=== PATIENT | female | born 1990 | race Caucasian/White ===

== ENCOUNTER 2020-01-06 12:05 | Emergency (ER) | payer OTHER ==
[~2020-01-06] VITALS: Ht 167.6 cm; Wt 115.7 kg
[~2020-01-06 12:05] MED LIST: ACET500; CEFU50SU PO; CRUTCH2 USE; HYDACE5 PO; IBUP800 PO; MEDR150I; PROCODE120 PO; TERB24TC TOP
[2020-01-06] MEDS ORDERED: IBUP400 PO (12:25)
[2020-01-06] MEDS ORDERED: TRAM50 PO (13:21)
[2020-01-06] MEDS ORDERED: Cleocin HCl300 MG PO (13:21)
== END 2020-01-06 13:37 | disposition home or self-care (01) ==
LOC: ER 12:05
DX: K02.9 Dental caries, unspecified (principal); F17.210 Nicotine dependence, cigarettes, uncomplicated; Z88.0 Allergy status to penicillin; Z88.1 Allergy status to other antibiotic agents
CPT/HCPCS: 99282

== ENCOUNTER → 2020-04-10 | Outpatient (CLI) | payer OTHER ==
[~2020-04-10] MED LIST changes: +Cleocin HCl300 MG PO; +IBUP400 PO; +TRAM50 PO
[2020-04-15 15:10] LABS: HPV 16 Negative (Negative); HPV 18 Negative (Negative); HPV OTHER HR TYPES Negative (Negative)
== END | disposition home or self-care (01) ==
LOC: LAB SHORT 19:26 → PLD 19:26
PROVIDERS: Family Medicine
DX: Z01.419 Encounter for gynecological examination (general) (routine) without abnormal findings (principal)
CPT/HCPCS: 87624; G0123

== ENCOUNTER → 2020-04-25 | Outpatient (CLI) | payer OTHER | END | disposition home or self-care (01) | LOC: LAB SHORT 08:20 → PLD 08:20 | DX: L72.0 Epidermal cyst (principal) | CPT/HCPCS: 88304 ==

== ENCOUNTER 2020-07-24 09:25 | Emergency (ER) | payer OTHER ==
[~2020-07-24] VITALS: Ht 170.2 cm; Wt 113.4 kg
[2020-07-24 10:04] LABS: Source, Urine Voided
[2020-07-24 10:08] LABS: Appearance, Urine Clear (Clear); Bilirubin, Urine Neg (Neg); Blood, Urine Neg (Neg); Glucose Qualitative, Urine Neg (Neg); Ketones, Urine Neg (Neg); Leukocyte Esterase, Urine 1+ (Neg); Nitrite, Urine Neg (Neg); Protein, Urine Neg (Neg); Specific Gravity, Urine 1.015 (1.003-1.022); Urobilinogen, Urine NORM (Normal)
[2020-07-24 10:13] LABS: BASOPHILS ABSOLUTE AUTO 0.03 K/mm3 (0.00-0.23); BASOPHILS PERCENT AUTO 0 % (0-2); EOSINOPHILS ABSOLUTE AUTO 0.13 K/mm3 (0.00-0.68); EOSINOPHILS PERCENT AUTO 1 % (0-6); Hematocrit 37.6 % (33.0-51.0); Hemoglobin 12.2 g/dL (11.5-16.0); IMMATURE GRAN ABSOLUTE AUTO 0.15 K/mm3 (0.00-0.10); IMMATURE GRAN PERCENT AUTO 2 % (0-1); LYMPHOCYTES ABSOLUTE AUTO 1.57 K/mm3 (0.84-5.20); LYMPHOCYTES PERCENT AUTO 17 % (21-46); MONOCYTES ABSOLUTE AUTO 0.65 K/mm3 (0.16-1.47); MONOCYTES PERCENT AUTO 7 % (4-13); Mean Corpuscular HGB 28.5 pg (26.0-34.0); Mean Corpuscular HGB Conc 32.4 g/dL (31.5-36.5); Mean Corpuscular Volume 88 fL (80-100); NEUTROPHILS ABSOLUTE AUTO 7.01 K/mm3 (1.96-9.15); NEUTROPHILS PERCENT AUTO 73 % (41-73); Platelet Count 184 K/mm3 (150-400); RDW Coefficient Variation 14.1 % (11.7-14.2); RDW Standard Deviation 45.1 fL (35.1-46.3); Red Blood Cell Count 4.28 M/mm3 (3.80-5.20); White Blood Cell Count 9.54 K/mm3 (4.00-11.30)
[2020-07-24 10:16] LABS: Color, Urine Pale Yellow (P-Yellow)
[2020-07-24 10:19] LABS: Renal Epithelial Rare /hpf (0-Rare)
[2020-07-24 10:20] LABS: Bacteria Few /hpf; Squamous Epithelial Cells Few /hpf (Few)
[2020-07-24 10:21] LABS: Red Blood Cells, Urine Not Seen /hpf (0-2)
[2020-07-24 10:22] LABS: White Blood Cells, Urine 0-2 /hpf (0-5)
[2020-07-24 10:33] LABS: Alanine Aminotransfer (ALT/SGP 18 U/L (12-78); Albumin, Blood 2.6 g/dL (3.4-5.0); Albumin/Globulin Ratio 0.6 (0.8-1.8); Alk Phos 61 U/L (50-136); Anion Gap 8 mmol/L (6-16); Aspartate Aminotrans (AST/SGOT 10 U/L (12-37); Bilirubin, Total 0.2 mg/dL (0.1-1.0); Blood Urea Nitrogen 10 mg/dL (8-24); CO2, Blood 22 mmol/L (21-32); Calcium, Blood 9.3 mg/dL (8.5-10.1); Chloride, Blood 107 mmol/L (98-108); Creatinine, Blood 0.56 mg/dL (0.40-1.00); Globulin, Blood 4.3 g/dL (2.2-4.0); Glomerular Filtration Rate >60 (60-); Glucose, Blood 78 mg/dL (70-99); Potassium, Blood 3.8 mmol/L (3.5-5.5); Sodium, Blood 137 mmol/L (136-145); Total Protein, Blood 6.9 g/dL (6.4-8.2)
== END 2020-07-24 11:35 | disposition home or self-care (01) ==
LOC: ER 09:25
PROVIDERS: Emergency Medicine
DX: R42 Dizziness and giddiness (principal); F17.200 Nicotine dependence, unspecified, uncomplicated; Z88.0 Allergy status to penicillin; Z88.1 Allergy status to other antibiotic agents
CPT/HCPCS: 36415; 80053; 81001; 83690; 85025; 87086; 93005; 93010; 99284-25; J7030

== ENCOUNTER → 2020-10-16 | Outpatient (CLI) | payer OTHER | LOC: LAB 18:41 → LAB SHORT 18:41 | DX: O09.93 Supervision of high risk pregnancy, unspecified, third trimester (principal) | CPT/HCPCS: 87081; 87150 ==

== ENCOUNTER 2020-10-28 00:27 | Inpatient (IN) | payer OTHER ==
[~2020-10-28] VITALS: Ht 170.2 cm; Wt 118.0 kg
[2020-10-28 01:21] LABS: BASOPHILS ABSOLUTE AUTO 0.04 K/mm3 (0.00-0.23); BASOPHILS PERCENT AUTO 1 % (0-2); EOSINOPHILS ABSOLUTE AUTO 0.08 K/mm3 (0.00-0.68); EOSINOPHILS PERCENT AUTO 1 % (0-6); Hematocrit 36.9 % (33.0-51.0); Hemoglobin 11.8 g/dL (11.5-16.0); IMMATURE GRAN ABSOLUTE AUTO 0.08 K/mm3 (0.00-0.10); IMMATURE GRAN PERCENT AUTO 1 % (0-1); LYMPHOCYTES ABSOLUTE AUTO 1.59 K/mm3 (0.84-5.20); LYMPHOCYTES PERCENT AUTO 19 % (21-46); MONOCYTES ABSOLUTE AUTO 0.74 K/mm3 (0.16-1.47); MONOCYTES PERCENT AUTO 9 % (4-13); Mean Corpuscular HGB 26.9 pg (26.0-34.0); Mean Corpuscular Volume 84 fL (80-100); NEUTROPHILS PERCENT AUTO 70 % (41-73); Platelet Count 140 K/mm3 (150-400); RDW Coefficient Variation 14.8 % (11.7-14.2); RDW Standard Deviation 44.8 fL (35.1-46.3); Red Blood Cell Count 4.39 M/mm3 (3.80-5.20); White Blood Cell Count 8.53 K/mm3 (4.00-11.30)
[2020-10-28 01:30] LABS: Mean Platelet Volume 13.2 fL (9.1-12.4)
[2020-10-28] MEDS ORDERED: HUMULIN N100 UNIT/3 SC (02:17)
[2020-10-28] MEDS ORDERED: LAMO25 PO (02:18)
[2020-10-28] MEDS ORDERED: ONE A DAY PREN1 EACH PO (02:19)
[2020-10-28] MEDS ORDERED: VITAMIN B-650 MG PO (02:20)
[2020-10-28] MEDS ORDERED: VENL150ER PO (02:21)
[2020-10-28 02:59] LABS: Creatinine, Urine Random 36.3 mg/dL (27.00-270.00); Protein, Urine Random 29.4 mg/dL (0.0-11.9); Protein/Creat Ratio, Ur Random 0.8
[2020-10-28 03:06] LABS: Alanine Aminotransfer (ALT/SGP 18 U/L (12-78); Albumin, Blood 2.5 g/dL (3.4-5.0); Albumin/Globulin Ratio 0.6 (0.8-1.8); Alk Phos 164 U/L (50-136); Anion Gap 8 mmol/L (6-16); Aspartate Aminotrans (AST/SGOT 11 U/L (12-37); Bilirubin, Total 0.3 mg/dL (0.1-1.0); Blood Urea Nitrogen 10 mg/dL (8-24); Bun/Creatinine Ratio 12.7 (12.0-20.0); CO2, Blood 25 mmol/L (21-32); Chloride, Blood 107 mmol/L (98-108); Creatinine, Blood 0.79 mg/dL (0.40-1.00); Glomerular Filtration Rate >60 (60-); Glucose, Blood 87 mg/dL (70-99); Potassium, Blood 4.3 mmol/L (3.5-5.5); Sodium, Blood 140 mmol/L (136-145); Total Protein, Blood 6.5 g/dL (6.4-8.2)
[2020-10-28 05:55] LABS: PCO2 Cord - Arterial 57.8 mmHg (40-50); PO2 Cord - Arterial 21.6 mmHg (16-20); pH Cord - Arterial 7.21 (7.28-7.35)
[2020-10-28 05:57] LABS: PCO2 Cord - Venous 34.2 mmHg (40-50); PO2 Cord - Venous 36.5 mmHg (28-32); pH Umbilical Cord - Venous 7.39 (7.26-7.35)
--- NOTE | 2020-10-28 10:14 | NUR ---
PATIENT DOZING INTERMITTANLY, NO C/O HEADACH, VISUAL DISTURBANCES, EPIGASTRIC PAIN.
--- NOTE | 2020-10-29 08:27 | NUR ---
DR YAP AT BEDSIDE
--- NOTE | 2020-10-29 08:54 | NUR ---
PSA STOCKING APPLIED
[2020-10-30] MEDS ORDERED: IBUP800 PO (08:35)
[2020-10-30] MEDS ORDERED: LABE200 PO (08:36)
--- NOTE | 2020-10-30 09:54 | NUR ---
DISCHARGE INSTRUCTIONS REVIEWED AND SIGNED. BANDS MATCHED. DISCHARGED TO HOME.
== END 2020-10-30 10:10 | disposition home or self-care (01) | DRG 805 ==
LOC: OBS 00:27 → BC 00:28 → OBS 00:29 → BC 00:30
PROVIDERS: Advanced Practice Midwife; ADMIT Family Medicine
PROC: 10E0XZZ Delivery of Products of Conception, External Approach (ICD-10-PCS; principal; 2020-10-28)
PROC: 0KQM0ZZ Repair Perineum Muscle, Open Approach (ICD-10-PCS; 2020-10-28)
PROC: 10907ZC Drainage of Amniotic Fluid, Therapeutic from Products of Conception, Via Natural or Artificial Opening (ICD-10-PCS; 2020-10-28)
DX: O24.424 Gestational diabetes mellitus in childbirth, insulin controlled (principal); U07.1 COVID-19; Z37.0 Single live birth; O99.12 Other diseases of the blood and blood-forming organs and certain disorders involving the immune mechanism complicating childbirth; O98.52 Other viral diseases complicating childbirth; Z3A.39 39 weeks gestation of pregnancy; O76 Abnormality in fetal heart rate and rhythm complicating labor and delivery; O99.214 Obesity complicating childbirth; E66.9 Obesity, unspecified; O70.1 Second degree perineal laceration during delivery; O99.344 Other mental disorders complicating childbirth; F41.8 Other specified anxiety disorders; O99.334 Smoking (tobacco) complicating childbirth; F17.210 Nicotine dependence, cigarettes, uncomplicated; O77.0 Labor and delivery complicated by meconium in amniotic fluid; D69.6 Thrombocytopenia, unspecified; O13.4 Gestational [pregnancy-induced] hypertension without significant proteinuria, complicating childbirth; O14.14 Severe pre-eclampsia complicating childbirth; Z79.899 Other long term (current) drug therapy; Z88.8 Allergy status to other drugs, medicaments and biological substances; Z88.0 Allergy status to penicillin; Z88.1 Allergy status to other antibiotic agents; Z88.4 Allergy status to anesthetic agent
CPT/HCPCS: 36415; 80053; 82570; 82803; 82947; 84156; 85025; 86850; 86900; 86901; 88307; A9270; J0360; J1815; J1885; J2210; J2590; J3010; J3475; J7030; J7050; J7120

== ENCOUNTER 2020-12-01 19:55 | Observation (INO) | payer OTHER ==
[~2020-12-01] VITALS: Ht 170.2 cm; Wt 117.9 kg
[~2020-12-01 19:55] MED LIST changes: +HUMULIN N100 UNIT/3 SC; +ONE A DAY PREN1 EACH PO; +VITAMIN B-650 MG PO
[2020-12-01 20:27] LABS: BASOPHILS ABSOLUTE AUTO 0.07 K/mm3 (0.00-0.23); BASOPHILS PERCENT AUTO 1 % (0-2); EOSINOPHILS ABSOLUTE AUTO 0.25 K/mm3 (0.00-0.68); EOSINOPHILS PERCENT AUTO 3 % (0-6); Hematocrit 40.8 % (33.0-51.0); Hemoglobin 13.1 g/dL (11.5-16.0); IMMATURE GRAN ABSOLUTE AUTO 0.03 K/mm3 (0.00-0.10); IMMATURE GRAN PERCENT AUTO 0 % (0-1); LYMPHOCYTES ABSOLUTE AUTO 2.33 K/mm3 (0.84-5.20); LYMPHOCYTES PERCENT AUTO 31 % (21-46); MONOCYTES ABSOLUTE AUTO 0.42 K/mm3 (0.16-1.47); MONOCYTES PERCENT AUTO 6 % (4-13); Mean Corpuscular HGB Conc 32.1 g/dL (31.5-36.5); Mean Corpuscular Volume 84 fL (80-100); Mean Platelet Volume 10.6 fL (9.1-12.4); NEUTROPHILS PERCENT AUTO 59 % (41-73); Platelet Count 267 K/mm3 (150-400); RDW Coefficient Variation 14.5 % (11.7-14.2); RDW Standard Deviation 44.3 fL (35.1-46.3); Red Blood Cell Count 4.85 M/mm3 (3.80-5.20)
[2020-12-01 20:30] LABS: Source, Urine Clean Catch
[2020-12-01 20:38] LABS: Appearance, Urine Clear (Clear); Bilirubin, Urine Neg (Neg); Blood, Urine Neg (Neg); Color, Urine Yellow (P-Yellow); Glucose Qualitative, Urine Neg (Neg); Ketones, Urine Neg (Neg); Leukocyte Esterase, Urine Neg (Neg); Nitrite, Urine Neg (Neg); Protein, Urine Neg (Neg); Urobilinogen, Urine NORM (Normal)
[2020-12-01 20:45] LABS: Alanine Aminotransfer (ALT/SGP 34 U/L (12-78); Albumin, Blood 3.7 g/dL (3.4-5.0); Albumin/Globulin Ratio 0.9 (0.8-1.8); Alk Phos 94 U/L (50-136); Anion Gap 7 mmol/L (6-16); Aspartate Aminotrans (AST/SGOT 20 U/L (12-37); Bilirubin, Total 0.2 mg/dL (0.1-1.0); Blood Urea Nitrogen 9 mg/dL (8-24); Bun/Creatinine Ratio 9.8 (12.0-20.0); CO2, Blood 26 mmol/L (21-32); Calcium, Blood 9.4 mg/dL (8.5-10.1); Chloride, Blood 107 mmol/L (98-108); Creatinine, Blood 0.92 mg/dL (0.40-1.00); Ethanol (Alcohol), Blood, Med <3 mg/dL; Globulin, Blood 4.2 g/dL (2.2-4.0); Glomerular Filtration Rate >60 (60-); Glucose, Blood 93 mg/dL (70-99); Potassium, Blood 3.8 mmol/L (3.5-5.5); Salicylate <1.7 mg/dL (2.8-20.0); Sodium, Blood 140 mmol/L (136-145); Total Protein, Blood 7.9 g/dL (6.4-8.2)
[2020-12-01 20:48] LABS: Acetaminophen, Random <2.0 ug/mL (10.0-30.0)
[2020-12-01 20:52] LABS: U Amphetamine Screen Not Detected; U Barbituate Screen Not Detected; U Benzodiazapine Screen Not Detected; U Buprenorphine Screen Not Detected; U Cannabinoids Screen DETECTED; U Cocaine Screen Not Detected; U Methadone Screen Not Detected; U Methamphetamine Screen Not Detected; U Opiates Screen Not Detected; U Oxycodone Screen Not Detected; U Phencyclidine Screen Not Detected; U Propoxyphene Screen Not Detected
[2020-12-01] MEDS ORDERED: Prinivil10 MG PO (21:21)
[2020-12-01] MEDS ORDERED: LAMICTAL XR100 MG PO (21:21)
[2020-12-01] MEDS ORDERED: LABE200 PO (21:22)
[2020-12-01] MEDS ORDERED: IBUP800 PO (21:23)
[2020-12-01] MEDS ORDERED: VENL150ER PO (21:23)
[2020-12-02 01:18] LABS: SARS-Cov-2 (COVID-19) PCR, MMC NEGATIVE (NEGATIVE)
== END 2020-12-02 15:31 | disposition home or self-care (01) ==
LOC: ER 19:55 → EOR 19:56
PROVIDERS: Physician Assistant; ADMIT Student in an Organized Health Care Education/Training Program
DX: F33.9 Major depressive disorder, recurrent, unspecified (principal); F17.210 Nicotine dependence, cigarettes, uncomplicated; Z88.0 Allergy status to penicillin; Z88.1 Allergy status to other antibiotic agents; Z79.899 Other long term (current) drug therapy; Z20.822 Contact with and (suspected) exposure to COVID-19
CPT/HCPCS: 36415; 80053; 81003; 81025; 85025; 99285-25; G0378; G0480; Q3014; U0004

== ENCOUNTER → 2020-12-29 | Outpatient (CLI) | payer OTHER ==
[~2020-12-29] MED LIST changes: +LABE200 PO; +LAMICTAL XR100 MG PO; +Prinivil10 MG PO; +VENL150ER PO
[2020-12-30 10:16] LABS: Candida species (DNA Probe) Negative (NEGATIVE); G. vaginalis (DNA Probe) Positive (NEGATIVE); T. vaginalis (DNA Probe) Negative (NEGATIVE)
== END | disposition home or self-care (01) ==
LOC: LAB 13:55 → LAB SHORT 13:55
PROVIDERS: Family Medicine
DX: N89.8 Other specified noninflammatory disorders of vagina (principal)
CPT/HCPCS: 87480; 87510; 87660

== ENCOUNTER 2021-04-23 10:47 | Emergency (ER) | payer OTHER ==
[~2021-04-23] VITALS: Ht 170.2 cm; Wt 115.7 kg
[2021-04-23] MEDS ORDERED: CORTISONE60 GM TOP (13:02)
== END 2021-04-23 13:05 | disposition home or self-care (01) ==
LOC: ER 10:47
DX: L25.1 Unspecified contact dermatitis due to drugs in contact with skin (principal); T42.6X5A Adverse effect of other antiepileptic and sedative-hypnotic drugs, initial encounter; Z88.0 Allergy status to penicillin; Z79.899 Other long term (current) drug therapy; F17.210 Nicotine dependence, cigarettes, uncomplicated; L27.1 Localized skin eruption due to drugs and medicaments taken internally
CPT/HCPCS: 99282

== ENCOUNTER 2022-08-20 07:44 | Day surgery (SDC) | payer OTHER ==
[~2022-08-20] VITALS: Ht 170.2 cm; Wt 114.3 kg
[~2022-08-20 07:44] MED LIST changes: +CORTISONE60 GM TOP
[2022-08-20] MEDS ORDERED: Desyrel150 MG PO (09:01)
[2022-08-20] MEDS ORDERED: CATAPRES0.3 MG PO (09:02)
[2022-08-20] MEDS ORDERED: LATUDA80 M1 PO (09:02)
--- NOTE | 2022-08-20 10:32 | NUR ---
08/20/22 1032 Arabella Brooks UNABLE TO REACH CECUM DUE TO POOR PREP
[2022-08-20 10:57] VITALS: BP 125/85
== END 2022-08-20 11:01 | disposition home or self-care (01) ==
LOC: ORSCSDS 07:44
PROVIDERS: Surgery
PROC: 0DB78ZX Excision of Stomach, Pylorus, Via Natural or Artificial Opening Endoscopic, Diagnostic (ICD-10-PCS; principal; 2022-08-20 09:30)
PROC: 0DB48ZX Excision of Esophagogastric Junction, Via Natural or Artificial Opening Endoscopic, Diagnostic (ICD-10-PCS; principal; 2022-08-20 09:30)
PROC: 0DB98ZX Excision of Duodenum, Via Natural or Artificial Opening Endoscopic, Diagnostic (ICD-10-PCS; principal; 2022-08-20 09:30)
PROC: 0DBE8ZX Excision of Large Intestine, Via Natural or Artificial Opening Endoscopic, Diagnostic (ICD-10-PCS; principal; 2022-08-20 09:30)
DX: R19.7 Diarrhea, unspecified (principal); K62.5 Hemorrhage of anus and rectum; R10.13 Epigastric pain; R14.2 Eructation; K60.2 Anal fissure, unspecified; F41.8 Other specified anxiety disorders; Z87.891 Personal history of nicotine dependence; F43.10 Post-traumatic stress disorder, unspecified; Z79.899 Other long term (current) drug therapy
CPT/HCPCS: 88305; 88342; J2704; J7120

== ENCOUNTER 2022-11-18 15:22 | Emergency (ER) | payer OTHER ==
[~2022-11-18] VITALS: Ht 170.2 cm; Wt 113.4 kg
[~2022-11-18 15:22] MED LIST changes: +CATAPRES0.3 MG PO; +Desyrel150 MG PO; +LATUDA80 M1 PO
[2022-11-18 15:28] VITALS: BP 158/89
[2022-11-18] MEDS ORDERED: IBUP800 PO (16:16)
[2022-11-18] MEDS ORDERED: Robaxin750 MG PO (16:16)
== END 2022-11-18 16:24 | disposition home or self-care (01) ==
LOC: ER 15:22
DX: M54.50 Low back pain, unspecified (principal); Z88.0 Allergy status to penicillin; Z88.1 Allergy status to other antibiotic agents; Z88.8 Allergy status to other drugs, medicaments and biological substances; F17.200 Nicotine dependence, unspecified, uncomplicated; X50.1XXA Overexertion from prolonged static or awkward postures, initial encounter
CPT/HCPCS: 96372; 99283-25; A9270; J1885

== ENCOUNTER → 2023-03-11 | Outpatient (CLI) | payer OTHER ==
[~2023-03-11] MED LIST changes: +Robaxin750 MG PO
[2023-03-11 16:01] LABS: Candida species (DNA Probe) Negative (NEGATIVE); G. vaginalis (DNA Probe) Negative (NEGATIVE); T. vaginalis (DNA Probe) Negative (NEGATIVE)
== END | disposition home or self-care (01) ==
LOC: LAB 11:37 → LAB SHORT 11:37
PROVIDERS: Family Medicine
DX: Z01.419 Encounter for gynecological examination (general) (routine) without abnormal findings (principal); N89.8 Other specified noninflammatory disorders of vagina
CPT/HCPCS: 87480; 87510; 87660

== ENCOUNTER → 2023-05-10 | Outpatient (CLI) | payer OTHER ==
[2023-05-10 20:19] LABS: Prolactin 5.9 ng/mL; Thyroid Stimulating Hormone 1.59 uIU/mL (0.360-4.800)
[2023-05-10 20:29] LABS: Candida Group, PCR NOT DETECTED (NOT DETECT); Candida glabrata-krusei, PCR NOT DETECTED (NOT DETECT)
[2023-05-10 20:44] LABS: Bacterial Vaginosis PCR Positive (NEGATIVE)
== END ==
LOC: LAB SHORT 17:01 → LAB 17:01
PROVIDERS: Family Medicine
DX: Z01.419 Encounter for gynecological examination (general) (routine) without abnormal findings (principal); N89.8 Other specified noninflammatory disorders of vagina; N64.52 Nipple discharge; Z80.3 Family history of malignant neoplasm of breast
CPT/HCPCS: 36415; 84146; 84443; 87481; 87661; 87801

== ENCOUNTER 2024-03-04 17:35 | Emergency (ER) | payer OTHER ==
[~2024-03-04] VITALS: Ht 172.7 cm; Wt 117.9 kg
[2024-03-04 17:57] LABS: BASOPHILS ABSOLUTE AUTO 0.07 K/mm3 (0.00-0.23); BASOPHILS PERCENT AUTO 1 % (0-2); EOSINOPHILS ABSOLUTE AUTO 0.45 K/mm3 (0.00-0.68); EOSINOPHILS PERCENT AUTO 5 % (0-6); Hematocrit 45.6 % (33.0-51.0); Hemoglobin 15.5 g/dL (11.5-16.0); IMMATURE GRAN ABSOLUTE AUTO 0.03 K/mm3 (0.00-0.10); IMMATURE GRAN PERCENT AUTO 0 % (0-1); LYMPHOCYTES ABSOLUTE AUTO 2.06 K/mm3 (0.84-5.20); LYMPHOCYTES PERCENT AUTO 23 % (21-46); MONOCYTES ABSOLUTE AUTO 0.51 K/mm3 (0.16-1.47); MONOCYTES PERCENT AUTO 6 % (4-13); Mean Corpuscular HGB 29.7 pg (26.0-34.0); Mean Corpuscular Volume 87 fL (80-100); Mean Platelet Volume 10.6 fL (9.1-12.4); NEUTROPHILS PERCENT AUTO 65 % (41-73); Platelet Count 278 K/mm3 (150-400); RDW Standard Deviation 41.3 fL (35.1-46.3); Red Blood Cell Count 5.22 M/mm3 (3.80-5.20); White Blood Cell Count 9.02 K/mm3 (4.00-11.30)
[2024-03-04 18:26] LABS: Albumin, Blood 3.5 g/dL (3.4-5.0); Albumin/Globulin Ratio 0.9 (0.8-1.8); Bilirubin, Total 0.4 mg/dL (0.1-1.0); Bun/Creatinine Ratio 13.9 (12.0-20.0); Calcium, Blood 9.5 mg/dL (8.5-10.1); Creatinine, Blood 0.86 mg/dL (0.40-1.00); Globulin, Blood 4.1 g/dL (2.2-4.0); Potassium, Blood 3.6 mmol/L (3.5-5.5); Total Protein, Blood 7.6 g/dL (6.4-8.2)
[2024-03-04] MEDS ORDERED: Ketorolac Tromethamine 30mg Vial IV ONE (19:15)
[2024-03-04] MEDS ORDERED: Prochlorperazine Edisylate 10 mg Vial IV ONE (19:15)
[2024-03-04 21:00] VITALS: BP 177/117
== END 2024-03-04 21:14 | disposition home or self-care (01) ==
LOC: ER 17:35
PROVIDERS: Physician Assistant
DX: R55 Syncope and collapse (principal); R51.9 Headache, unspecified; F17.200 Nicotine dependence, unspecified, uncomplicated; Z79.899 Other long term (current) drug therapy; Z88.0 Allergy status to penicillin; Z88.1 Allergy status to other antibiotic agents; Z88.8 Allergy status to other drugs, medicaments and biological substances
CPT/HCPCS: 70450; 80053; 85025; 93005; 93010; 96374; 96375; 99284-25; J0780; J1885

== ENCOUNTER → 2024-09-04 | Outpatient (CLI) | payer OTHER | LOC: LAB 08:06 → LAB SHORT 08:06 | DX: R73.9 Hyperglycemia, unspecified (principal) | CPT/HCPCS: 36415; 83036 ==

== ENCOUNTER 2024-10-31 19:34 | Emergency (ER) | payer OTHER ==
[~2024-10-31] VITALS: Ht 170.2 cm; Wt 136.1 kg
[2024-10-31 19:49] VITALS: BP 145/65
[2024-10-31] MEDS ORDERED: HYDPAM25 PO (20:34)
== END 2024-10-31 20:53 | disposition home or self-care (01) ==
LOC: ER 19:34
DX: R45.851 Suicidal ideations (principal); F41.9 Anxiety disorder, unspecified; E66.9 Obesity, unspecified; F17.200 Nicotine dependence, unspecified, uncomplicated; Z68.42 Body mass index [BMI] 45.0-49.9, adult; Z86.59 Personal history of other mental and behavioral disorders; Z88.0 Allergy status to penicillin; Z88.1 Allergy status to other antibiotic agents; Z88.8 Allergy status to other drugs, medicaments and biological substances; Z79.899 Other long term (current) drug therapy
CPT/HCPCS: 99284; A9270

== ENCOUNTER 2025-01-30 12:46 | Emergency (ER) | payer OTHER ==
[~2025-01-30] VITALS: Ht 170.2 cm; Wt 127.0 kg
[~2025-01-30 12:46] MED LIST changes: +HYDPAM25 PO
[2025-01-30 12:50] VITALS: BP 151/61
[2025-01-30] MEDS ORDERED: Ketorolac Tromethamine 30mg Vial IM ONE (16:05)
[2025-01-30] MEDS ORDERED: OxyCODONE 5 mg/Acetamin 325 mg TABLET PO ONE (16:05)
[2025-01-30] MEDS ORDERED: IBUP800 PO (16:46)
[2025-01-30] MEDS ORDERED: RX Prepack 2 Tabs Ondansetron ODT 4MG UD ONE (16:50)
[2025-01-30] MEDS ORDERED: RX Prepack 6 Tabs Oxycodone 5mg UD ONE (16:50)
== END 2025-01-30 17:14 | disposition home or self-care (01) ==
LOC: ER 12:46
DX: S63.501A Unspecified sprain of right wrist, initial encounter (principal); W54.1XXA Struck by dog, initial encounter; F17.200 Nicotine dependence, unspecified, uncomplicated
CPT/HCPCS: 73110; 73130; 96372; 99283-25; A9270; J1885